=== PATIENT | female | born 1965 | race American Indian/Alaskan Native ===

== ENCOUNTER 2017-05-26 14:58 | Emergency (ER) | payer BC, MEDICAID, OTHER ==
[2017-05-26 16:04] VITALS: BP 141/68
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
== END 2017-05-26 17:14 | disposition home or self-care (01) ==
LOC: DL.ED 14:58
DX: S99.922A Unspecified injury of left foot, initial encounter (principal); Z88.5 Allergy status to narcotic agent; F17.210 Nicotine dependence, cigarettes, uncomplicated; W22.8XXA Striking against or struck by other objects, initial encounter
CPT/HCPCS: 73660-T4; 99284

== ENCOUNTER 2024-07-13 13:16 | Emergency (ER) | payer MEDICAID, OTHER ==
[2024-07-13 13:32] VITALS: BP 144/73; PULSE 100
[2024-07-13] MEDS: Ketorolac 30 MG/ML SDV IM ONE (13:54)
== END 2024-07-13 14:19 | disposition home or self-care (01) ==
LOC: DL.ED 13:16
DX: G57.61 Lesion of plantar nerve, right lower limb (principal); Z88.5 Allergy status to narcotic agent
CPT/HCPCS: 96372; 99283; J1885